=== PATIENT | male | born 1975 | race Hispanic/Latino ===

== ENCOUNTER 2024-03-18 10:00 | Inpatient (IN) | payer OTHER ==
[~2024-03-18] VITALS: Ht 180.3 cm; Wt 104.0 kg
[2024-03-18 15:09] LABS: BASOPHILS # (AUTO) 0.02 K/uL (0.00-0.20); BASOPHILS % (AUTO) 0.3 % (0.0-5.0); EOSINOPHILS # (AUTO) 0.03 K/uL (0.00-0.70); EOSINOPHILS % (AUTO) 0.4 % (0.0-8.0); HEMATOCRIT 39.6 % (42-54); IMMATURE GRANULOCYTE ABSOLUTE 0.05 K/uL (0-1); LYMPHOCYTES # (AUTO) 1.5 K/uL (1.0-4.8); LYMPHOCYTES % (AUTO) 19.1 % (21.0-51.0); MEAN CORPUSCULAR HEMOGLOBIN 32.2 pg (27.0-33.0); MEAN CORPUSCULAR HGB CONC 33.8 g/dL (32.0-36.0); MEAN CORPUSCULAR VOLUME 95.2 fL (79-99); MONOCYTES # (AUTO) 0.5 K/uL (0.1-1.0); MONOCYTES % (AUTO) 5.7 % (3.0-13.0); NEUTROPHILS # (AUTO) 5.8 K/uL (1.8-7.7); NEUTROPHILS % (AUTO) 73.9 % (40.0-77.0); PLATELET COUNT (AUTO) 200 K/uL (130-400); RED BLOOD CELL COUNT(AUTO) 4.16 MIL/uL (4.50-6.20); RED CELL DISTRIBUTION WIDTH 12.4 % (11.0-15.5); WHITE BLOOD COUNT (AUTO) 7.9 K/uL (4.8-10.8)
[2024-03-18 15:18] VITALS: BP 139/86; PULSE 73; RESP 16; TEMP 98.1
[2024-03-18 15:23] LABS: CREATININE 2.2 mg/dL (0.5-1.3); POTASSIUM 5.2 mmol/L (3.5-5.1)
[2024-03-18] MEDS ORDERED: FAMO20TA8 PO (16:35)
[2024-03-18] MEDS ORDERED: TACR1CAP10 PO ×2 (16:35)
[2024-03-18] MEDS ORDERED: AMLO-257 PO (16:35)
[2024-03-18] MEDS ORDERED: JULUCA PO (16:35)
[2024-03-18] MEDS ORDERED: CARV25TA PO (16:35)
[2024-03-18] MEDS ORDERED: SODI650T PO (16:35)
[2024-03-18] MEDS ORDERED: ATOR10 PO (16:35)
[2024-03-18] MEDS ORDERED: PRED10TA3 PO (16:35)
[2024-03-20] VITALS (27 sets, daily range): BP systolic 130–179; BP diastolic 84–103; PULSE 68–123; RESP 15–21; TEMP 97.1–98; O2SAT 99
[2024-03-20] MEDS: ceFAZolin SODIUM 2 GM VIAL ONE (10:00)
[2024-03-20] MEDS: ceFAZolin SODIUM 1 GM VIAL ONE (10:00)
[2024-03-20] MEDS: 0.9% NACL 500ML IV.SOLN 500 ML IV ONE (10:00)
[2024-03-20] MEDS ORDERED: PROBIOTIC GUMMY PO (10:44)
[2024-03-20 10:58] LABS: CREATININE 1.9 mg/dL (0.5-1.3); POTASSIUM 4.2 mmol/L (3.5-5.1)
[2024-03-20 10:59] LABS: INR 1.18 (0.85-1.15); PROTHROMBIN TIME 12.6 SEC (9.6-11.6)
[2024-03-20 11:00] LABS: PARTIAL THROMBOPLASTIN TIME 27.1 SEC (26.3-35.5)
[2024-03-20] MEDS ORDERED: rocuRONium bROMide 10MG/1ML 5ML VL ONE ×2 (11:42→13:33)
[2024-03-20] MEDS ORDERED: LIDOCAINE PF 100MG/5ML (2%) SYRINGE 5ML ONE (11:42)
[2024-03-20] MEDS ORDERED: proPOFol 10 MG/ML 20ML VIAL IV ONE (11:42)
[2024-03-20] MEDS ORDERED: FENTanyl CITRate PF 50 MCG/1 ML 2ML VIAL ONE (11:43)
[2024-03-20] MEDS ORDERED: ceFAZolin SODIUM 1 GM VIAL ONE (11:52)
[2024-03-20] MEDS: FAMOTIDINE 20MG VIAL IV ONE (12:35)
[2024-03-20] MEDS ORDERED: ketaMINE 50MG/ML SYRINGE 50 MG/ML DISP.SYRIN ONE (12:36)
[2024-03-20] MEDS ORDERED: BUPIvacaine/PF 0.25% 30ML VIAL IJ ONE (12:39)
[2024-03-20] MEDS ORDERED: MIDAZOLAM HCL 1 MG/ML 2ML VIAL ONE (12:40)
[2024-03-20] MEDS: ceFAZolin SODIUM 3 GM VIAL IVPB ONE (13:05)
[2024-03-20] MEDS ORDERED: ONDANSETRON 4MG INJ ONE (13:22)
[2024-03-20] MEDS ORDERED: FENTanyl CITRate PF 50 MCG/1 ML 5ML AMP IV ONE (13:36)
[2024-03-20] MEDS ORDERED: ALBUMIN (HUMAN) 5% 250 ML IV ONE (13:37)
[2024-03-20] MEDS ORDERED: GLYCOPYRROLATE 0.2 MG/ML 5 ML VIAL ONE (15:09)
[2024-03-20] MEDS ORDERED: NEOSTIGMINE METHYLSULFATE 1MG/ML IV ONE (15:10)
[2024-03-20] MEDS ORDERED: PHENYLEPHRINE HCL 10 MG/ML 1ML VIAL IV ONE (15:19)
[2024-03-20] MEDS: MEPERIDINE-PF 25 MG/ML SYG ONE (15:53)
[2024-03-20] MEDS ORDERED: PROCHLORPERAZINE 10MG/2ML INJ IV PRN (16:00)
[2024-03-20] MEDS: HEParin 5,000 UNIT VIAL SQ SCH (16:00)
[2024-03-20] MEDS: FENTanyl CITRate PF 50 MCG/1 ML 2ML VIAL ONE (16:03)
[2024-03-20] MEDS: LAbetaLOL 20MG VIAL ONE (16:12)
[2024-03-20] MEDS: HYDROcod/acetaMINOPHEN 7.5/325 MG 15 ML UDCUP PO PRN (18:36)
[2024-03-20] MEDS: tacrOLIMUS 1 MG CAPSULE PO SCH (20:25)
[2024-03-20] MEDS: carVEDIlol 25 MG TABLET PO SCH (20:25)
[2024-03-20] MEDS: SODIUM BICARBONATE 650 MG TAB PO SCH (20:25)
[2024-03-20] MEDS: D5LR-20 MEQ KCL 1000 ML 1,000 ML IV SCH (20:26)
[2024-03-20] MEDS: ONDANSETRON 4MG INJ IVP PRN (20:32)
[2024-03-20] MEDS: hydroMORPHone 1 MG INJ IVP PRN (23:37)
[2024-03-21] VITALS: BP 146/98; PULSE 93; RESP 18; TEMP 97.9
[2024-03-21 04:00] VITALS: BP 153/95; PULSE 87; RESP 20; TEMP 97.7
[2024-03-21 08:00] VITALS: BP 173/112; PULSE 90; RESP 18; TEMP 98.1
[2024-03-21] MEDS: PANTOPRAZOLE 40 MG/VIAL IVP SCH (08:35)
[2024-03-21] MEDS: amLODIPine 5 MG TAB PO SCH (08:36)
[2024-03-21] MEDS: tacrOLIMUS 1 MG CAPSULE PO SCH (08:36)
[2024-03-21] MEDS: PREDNISONE 10 MG TABLET PO SCH (08:36)
[2024-03-21] MEDS: SIMETHICONE 80 MG TAB.CHEW PO PRN (08:48)
[2024-03-21] MEDS: JULUCA PO SCH (08:57)
[2024-03-21 09:00] VITALS: O2SAT 100
[2024-03-21 11:04] VITALS: BP 132/81; PULSE 75; RESP 20; TEMP 98.3
[2024-03-21 16:00] VITALS: BP 129/82; PULSE 74; RESP 20; TEMP 98.3
== END 2024-03-21 16:56 | disposition home or self-care (01) | DRG 326 ==
LOC: DAHIP 03-20 09:45 → EDSTATUS 03-20 10:00 → 4DH 03-20 17:00
PROVIDERS: ADMIT Surgery; ATTEND Surgery
PROC: 0BUT4JZ Supplement Diaphragm with Synthetic Substitute, Percutaneous Endoscopic Approach (ICD-10-PCS; principal; 2024-03-20 12:59)
PROC: 0D844ZZ Division of Esophagogastric Junction, Percutaneous Endoscopic Approach (ICD-10-PCS; 2024-03-20 12:59)
PROC: 0DV44ZZ Restriction of Esophagogastric Junction, Percutaneous Endoscopic Approach (ICD-10-PCS; 2024-03-20 12:59)
PROC: 0DJ08ZZ Inspection of Upper Intestinal Tract, Via Natural or Artificial Opening Endoscopic (ICD-10-PCS; 2024-03-20 12:59)
DX: K44.9 Diaphragmatic hernia without obstruction or gangrene (principal); N18.6 End stage renal disease; I12.0 Hypertensive chronic kidney disease with stage 5 chronic kidney disease or end stage renal disease; B20 Human immunodeficiency virus [HIV] disease; K22.0 Achalasia of cardia; K21.9 Gastro-esophageal reflux disease without esophagitis; Z79.899 Other long term (current) drug therapy; Z90.49 Acquired absence of other specified parts of digestive tract
CPT/HCPCS: 36415; 43235; 80048; 85025; 85610; 85730; 86850; 86900; 86901; 93005; G0378; J0690; J1170; J1644; J2001; J2175; J2250; J2371; J2405; J2470; J2704; J2710; J3010; J3480; J3490; J7030; J7040; J7507; J7512; P9045; A4213; A4215; A4216; A4221; A4222; A4223; A4600; A4657; A4663; A4930; A6260; C1781; G8980-CI; G8983-CI; J0665